=== PATIENT | female | born 1955 | race Caucasian/White ===

== ENCOUNTER 2018-06-01 23:03 | Inpatient (IN) | payer MEDICAID ==
[~2018-06-01] VITALS: Ht 162.6 cm; Wt 48.8 kg
[2018-06-02 02:14] VITALS: BP 168/90
[2018-06-02] MEDS ORDERED: OLAN10TA3 PO (03:31)
[2018-06-02] MEDS ORDERED: magnesium hydroxide 30ml (MOM) UD suspension PO PRN (05:20)
[2018-06-02] MEDS ORDERED: acetaminophen 325mg tablet PO PRN (05:20)
[2018-06-02] MEDS ORDERED: ESTR0.755 PO (07:16)
[2018-06-02] MEDS ORDERED: IBUP-1594 PO (07:16)
[2018-06-02] MEDS ORDERED: ALBU18HF2 INH (07:16)
[2018-06-02] MEDS ORDERED: OLAN2.5T3 PO (07:16)
[2018-06-02] MEDS ORDERED: BUPR150T8 PO (07:16)
[2018-06-02] MEDS ORDERED: SERT100T10 PO (07:16)
[2018-06-02] MEDS ORDERED: OLAN5TAB29 PO (07:16)
[2018-06-02] MEDS ORDERED: TEMA30CA5 PO (07:16)
[2018-06-02 07:52] LABS: HEMOGLOBIN A1C 5.2 % (4.5-6.2)
[2018-06-02 08:00] VITALS: BP 170/95
[2018-06-02] MEDS ORDERED: buPROPion SR 150mg tablet PO SCH (08:00)
[2018-06-02] MEDS ORDERED: OLANZapine 5mg rapidly disint. tablet PO SCH (08:00)
[2018-06-02 08:01] LABS: CHOL/HDL RATIO 4.4 (0.00-4.99); CHOLESTEROL 239 MG/DL (0-200); HDL CHOLESTEROL 54 MG/DL (35-60); LDL CHOLESTEROL 154 MG/DL (50-100); TRIGLYCERIDES 155 MG/DL (20-135)
[2018-06-02] MEDS: nicotine 21mg patch - 24 hr TD SCH (08:12)
[2018-06-02] MEDS: ESTROPIPATE 0.75 MG PO SCH (09:52)
[2018-06-02] MEDS: ibuprofen 200mg tablet PO PRN ×2 (09:54→14:06)
[2018-06-02] MEDS ORDERED: LORazepam 1 MG tablet PO ONE (13:25)
[2018-06-02] MEDS: buPROPion SR 150mg tablet PO SCH (14:36)
[2018-06-02] MEDS: HYDROcodone/acetaminophen 10/325mg tab PO PRN (15:44)
[2018-06-02] MEDS: albuterol 2.5 MG/3 ML nebule NEB PRN (17:32)
[2018-06-02] MEDS: LORazepam 1 MG tablet PO SCH (17:41)
[2018-06-02 19:00] VITALS: BP 166/110
[2018-06-02] MEDS: temazepam 15mg capsule PO SCH (20:24)
[2018-06-02] MEDS: OLANZapine 5mg rapidly disint. tablet PO SCH (20:24)
[2018-06-02] MEDS ORDERED: temazepam 15mg capsule PO SCH (21:00)
[2018-06-02] MEDS ORDERED: olanzapine 10mg tablet PO SCH (21:00)
[2018-06-02] MEDS: hydrALAZINE 20mg/ml inj. IV SCH (21:32)
[2018-06-02 22:11] VITALS: BP 133/79
[2018-06-03] MEDS: hydrALAZINE 20mg/ml inj. IV SCH ×4 (02:00→20:00)
[2018-06-03 02:26] VITALS: BP 138/75
[2018-06-03] MEDS: LORazepam 1 MG tablet PO SCH ×2 (07:24→17:56)
[2018-06-03] MEDS: nicotine 21mg patch - 24 hr TD SCH (07:25)
[2018-06-03] MEDS: ESTROPIPATE 0.75 MG PO SCH (07:25)
[2018-06-03] MEDS: buPROPion SR 150mg tablet PO SCH ×2 (07:25→12:04)
[2018-06-03] MEDS: lisinopril 10 MG tablet PO SCH (07:25)
[2018-06-03] MEDS: HYDROcodone/acetaminophen 10/325mg tab PO PRN ×2 (07:35→15:12)
[2018-06-03] MEDS ORDERED: OLANZapine 5mg rapidly disint. tablet PO SCH (08:00)
[2018-06-03 08:25] VITALS: BP 131/88
[2018-06-03 11:00] LABS: BASOPHILS # (AUTO) 0.1 X10'3 (0-0.2); BASOPHILS % (AUTO) 1.1 % (0-1); EOSINOPHILS # (AUTO) 0.3 X10'3 (0-0.9); EOSINOPHILS % (AUTO) 2.6 % (0-6); HEMATOCRIT 37.8 % (35.0-45.0); HEMOGLOBIN 12.8 g/dl (12.0-16.0); LYMPHOCYTES # (AUTO) 1.8 X10'3 (1.1-4.8); MEAN CORPUSCULAR HEMOGLOBIN 32.3 PG (27.0-31.0); MEAN CORPUSCULAR HGB CONC 33.8 % (33.0-36.5); MEAN CORPUSCULAR VOLUME 95.5 FL (78-98); MEAN PLATELET VOLUME 7.1 FL (7.4-10.4); MONOCYTES # (AUTO) 0.8 X10'3 (0-0.9); MONOCYTES % (AUTO) 7.6 % (2-12); NEUTROPHILS # (AUTO) 7.1 X10'3 (1.8-7.7); NEUTROPHILS % (AUTO) 70.7 % (42-75); PLATELET COUNT 386 X10'3 (140-440); RED BLOOD COUNT 3.96 X10'6 (4.20-5.60); RED CELL DISTRIBUTION WIDTH 14.5 % (11.5-14.5)
[2018-06-03 11:15] LABS: ALANINE AMINOTRANSFERASE 19 U/L (12-78); ALBUMIN 3.5 G/DL (3.4-5.0); ALBUMIN/GLOBULIN RATIO 0.9 (1.1-1.5); ALKALINE PHOSPHATASE 137 IU/L (46-116); ANION GAP 13 (8-16); ASPARTATE AMINO TRANSFERASE 15 U/L (10-37); BILIRUBIN,TOTAL 0.4 MG/DL (0.1-1.0); BLOOD UREA NITROGEN 7 MG/DL (7-18); BUN/CREATININE RATIO 12.7 (6.6-38.0); CHLORIDE 97 MMOL/L (99-107); CREATININE 0.55 MG/DL (0.40-0.90); POTASSIUM 4.3 MMOL/L (3.5-5.1); SODIUM 132 MMOL/L (135-145); TOTAL CARBON DIOXIDE 22.2 MMOL/L (24-32); TOTAL PROTEIN 7.2 G/DL (6.4-8.2); eGFR > 90 ML/MIN
[2018-06-03 11:17] LABS: GLUCOSE 139 MG/DL (70-104)
[2018-06-03] MEDS: ibuprofen 200mg tablet PO PRN (12:04)
[2018-06-03] MEDS ORDERED: thiothixene 2mg capsule PO PRN (14:30)
[2018-06-03] MEDS: propranolol 10mg tablet PO SCH ×2 (15:11→20:04)
[2018-06-03] MEDS ORDERED: NICOTINE POLACRILEX 4 MG LOZENGE BC PRN (15:15)
[2018-06-03] MEDS ORDERED: NICOTINE POLACRILEX 2 MG LOZENGE MM PRN (16:49)
[2018-06-03] MEDS: mag hydrox/Alum hydrox/simeth 30ml oral suspension PO PRN (18:33)
[2018-06-03] MEDS: cloNIDine 0.1 mg tablet PO PRN (18:35)
[2018-06-03 19:36] VITALS: BP 136/52
[2018-06-03] MEDS: temazepam 15mg capsule PO SCH (20:04)
[2018-06-03] MEDS: OLANZapine 5mg rapidly disint. tablet PO SCH (20:05)
[2018-06-04] MEDS: hydrALAZINE 20mg/ml inj. IV SCH ×4 (02:00→20:00)
[2018-06-04] MEDS: HYDROcodone/acetaminophen 10/325mg tab PO PRN ×3 (02:17→18:55)
[2018-06-04] MEDS: albuterol 2.5 MG/3 ML nebule NEB PRN (02:48)
[2018-06-04] MEDS: ibuprofen 200mg tablet PO PRN ×2 (07:08→12:19)
[2018-06-04] MEDS: nicotine 21mg patch - 24 hr TD SCH (07:27)
[2018-06-04] MEDS: LORazepam 1 MG tablet PO SCH ×2 (07:27→17:43)
[2018-06-04] MEDS: buPROPion SR 150mg tablet PO SCH ×2 (07:27→13:03)
[2018-06-04] MEDS: propranolol 10mg tablet PO SCH ×3 (07:27→20:14)
[2018-06-04] MEDS: lisinopril 10 MG tablet PO SCH (07:27)
[2018-06-04] MEDS: ESTROPIPATE 0.75 MG PO SCH (07:29)
[2018-06-04 08:00] VITALS: BP 138/90
[2018-06-04] MEDS: mag hydrox/Alum hydrox/simeth 30ml oral suspension PO PRN (16:07)
[2018-06-04] MEDS ORDERED: ondansetron 4mg rapidly disintigrating tab PO ONE (18:11)
[2018-06-04 19:51] VITALS: BP 170/92
[2018-06-04] MEDS: OLANZapine 5mg rapidly disint. tablet PO SCH (20:13)
[2018-06-04] MEDS: cloNIDine 0.1 mg tablet PO PRN (20:13)
[2018-06-04] MEDS: Melatonin 3mg tablet PO SCH (20:13)
[2018-06-05] MEDS: hydrALAZINE 20mg/ml inj. IV SCH ×3 (02:00→14:00)
[2018-06-05] MEDS: HYDROcodone/acetaminophen 10/325mg tab PO PRN ×2 (04:39→13:16)
[2018-06-05] MEDS: LORazepam 1 MG tablet PO SCH ×2 (07:22→17:40)
[2018-06-05] MEDS: lisinopril 10 MG tablet PO SCH (07:22)
[2018-06-05] MEDS: buPROPion SR 150mg tablet PO SCH ×2 (07:22→13:13)
[2018-06-05] MEDS: propranolol 10mg tablet PO SCH ×3 (07:23→20:26)
[2018-06-05] MEDS: nicotine 21mg patch - 24 hr TD SCH (07:23)
[2018-06-05] MEDS: ESTROPIPATE 0.75 MG PO SCH (07:23)
[2018-06-05 08:00] VITALS: BP 150/88
[2018-06-05] MEDS ORDERED: pantoprazole 40mg Tablet.DR PO ONE (10:35)
[2018-06-05] MEDS: acetaminophen 325mg tablet PO PRN (11:10)
[2018-06-05] MEDS ORDERED: ESTROPIPATE 0.75 MG PO SCH (14:20)
[2018-06-05] MEDS ORDERED: THIO2CAP2 PO (18:14)
[2018-06-05] MEDS ORDERED: HYDR-3972 PO (18:14)
[2018-06-05] MEDS ORDERED: LISI10TA4 PO (18:14)
[2018-06-05] MEDS ORDERED: TEMA30CA5 PO (18:14)
[2018-06-05] MEDS ORDERED: OLAN15TA17 PO (18:14)
[2018-06-05] MEDS ORDERED: PROP10TA10 PO (18:14)
[2018-06-05] MEDS ORDERED: ATI1T PO (18:14)
[2018-06-05] MEDS ORDERED: ondansetron 4mg rapidly disintigrating tab PO PRN (18:35)
[2018-06-05 20:00] VITALS: BP 182/91
[2018-06-05] MEDS: cloNIDine 0.1 mg tablet PO PRN (20:26)
[2018-06-05] MEDS: Melatonin 3mg tablet PO SCH (20:26)
[2018-06-05] MEDS: ibuprofen 200mg tablet PO PRN (20:27)
[2018-06-05] MEDS: OLANZapine 5mg rapidly disint. tablet PO SCH (20:27)
[2018-06-05] MEDS ORDERED: temazepam 15mg capsule PO PRN (21:05)
[2018-06-06] MEDS: HYDROcodone/acetaminophen 10/325mg tab PO PRN ×2 (04:03→11:51)
[2018-06-06] MEDS: acetaminophen 325mg tablet PO PRN (06:53)
[2018-06-06] MEDS: LORazepam 1 MG tablet PO SCH (06:54)
[2018-06-06] MEDS: buPROPion SR 150mg tablet PO SCH (06:54)
[2018-06-06] MEDS: nicotine 21mg patch - 24 hr TD SCH (07:04)
[2018-06-06] MEDS ORDERED: pantoprazole 40mg Tablet.DR PO SCH (07:30)
[2018-06-06 08:21] VITALS: BP 152/87
[2018-06-06] MEDS: propranolol 10mg tablet PO SCH (11:51)
[2018-06-06] MEDS: lisinopril 10 MG tablet PO SCH (11:52)
== END 2018-06-06 12:05 | disposition home or self-care (01) | DRG 751 ==
LOC: ADULT MH 06-02 00:46 → UNDODISIN 06-05 14:59 → ADULT MH 06-05 15:10
PROVIDERS: ADMIT Psychiatry & Neurology Psychiatry; ATTEND Psychiatry & Neurology Psychiatry
DX: F33.2 Major depressive disorder, recurrent severe without psychotic features (principal); R45.851 Suicidal ideations; E11.9 Type 2 diabetes mellitus without complications; F17.200 Nicotine dependence, unspecified, uncomplicated; F41.9 Anxiety disorder, unspecified; I10 Essential (primary) hypertension; G89.4 Chronic pain syndrome; M54.5 Low back pain; M54.2 Cervicalgia; J44.9 Chronic obstructive pulmonary disease, unspecified; Z90.710 Acquired absence of both cervix and uterus; Z90.49 Acquired absence of other specified parts of digestive tract; Z89.512 Acquired absence of left leg below knee; Z89.511 Acquired absence of right leg below knee; Z65.3 Problems related to other legal circumstances; Z59.0 Homelessness; Z79.899 Other long term (current) drug therapy; Z83.3 Family history of diabetes mellitus; Z23 Encounter for immunization
CPT/HCPCS: 36415; 71045; 80053; 80061; 83036; 84443; 85025; 87070; 93005; 94640; 94760; 99285; 99406; J0360; Q2037